=== PATIENT | female | born 2000 | race African-American/Black ===

== ENCOUNTER → 2023-09-27 | Day surgery (SDC) | payer BC ==
[~2023-09-27] MED LIST: FLONASE ALLERG9.9 ML INH; LIDOCAINE HCL 2% LOCAL INJ 5 ML SDV VIAL INJ ONE; LINZESS72 MCG PO; PROPOFOL IV EMULSION 10 MG/ML 50 ML VIAL IV ONE; SIMETHICONE 40 MG/0.6 ML BTL ONE
[2023-09-27] MEDS: LACTATED RINGER'S 1,000 ML ONE (06:30)
[2023-09-27 07:23] VITALS: TEMP 97.7
[2023-09-27 07:45] VITALS: BP 112/75; PULSE 92; RESP 16; O2SAT 99
== END | disposition home or self-care (01) ==
LOC: OR 05:43
PROVIDERS: ATTEND Internal Medicine Gastroenterology
DX: K59.01 Slow transit constipation (principal); Z68.1 Body mass index [BMI] 19.9 or less, adult; Z88.8 Allergy status to other drugs, medicaments and biological substances
CPT/HCPCS: 45378; 81025; J2001; J2704; J7121